=== PATIENT | male | born 1960 ===

== ENCOUNTER 2021-09-21 09:08 | Outpatient (CLI) | payer OTHER ==
[2021-09-21 11:15] LABS: #Basophils 0.1 thou/uL (0.0-0.2); #Eosinphils 0.2 thou/uL (0.0-0.7); #Lymphocytes 1.4 thou/uL (1.20-3.40); #Monocytes 0.5 thou/uL (0.11-0.59); #Neutrophils 2.3 thou/uL (1.40-6.50); %Basophils 1.3 % (0.0-1.0); %Eosinophils 4.7 % (0.0-10.0); %Lymphocytes 30.8 % (21.0-51.0); %Monocytes 11.9 % (0.0-10.0); %Neutrophils 51.4 % (42.0-75.0); Hemoglobin 14.8 g/dL (14.0-18.0); Mean Corpuscular Hemoglobin 29.5 pg (27.0-31.0); Mean Corpuscular Volume 95.3 fL (78.0-98.0); Mean Platelet Volume 8.2 fL (7.4-10.4); Platelet Count 200 thou/uL (130-400); RBC Distribution Width 12.6 % (11.5-14.5); White Blood Cell (WBC) Count 4.5 thou/uL (4.8-10.8)
[2021-09-21 11:30] LABS: ALT (SGPT) 40 U/L (8-55); AST (SGOT) 21 U/L (5-34); Albumin 4.9 g/dL (3.4-4.8); Alkaline Phosphatase 44 U/L (40-110); Anion Gap 16 mmol/L (10-20); BUN (Urea Nitrogen) 17 mg/dL (8.4-25.7); Bilirubin, Total 0.7 mg/dL (0.2-1.2); Calc. Creatinine Clearance 0 mL/min (70-130); Calcium 9.5 mg/dL (7.8-10.44); Carbon Dioxide 25 mmol/L (23-31); Chloride 104 mmol/L (98-107); Glucose 118 mg/dL (80-115); Potassium 3.9 mmol/L (3.5-5.1); Protein, Total 6.9 g/dL (5.8-8.1); Sodium 141 mmol/L (136-145)
[2021-09-21 11:45] LABS: Thyroid Stimulating Hormone 1.3742 uIU/mL (0.35-4.94)
[2021-09-21 16:44] LABS: Cardiac Risk 7.2 (Less than 4.5); Cholesterol 201 mg/dl (< 200 Desired); HDL Cholesterol 28 mg/dL (>60 Neg Risk); LDL Cholesterol, Calculated 137 mg/dL; Triglycerides 182 mg/dL (Less than 150)
[2021-09-21 17:05] LABS: Creatinine, Urine 175.06 mg/dL (63-166); Microalbumin Urine 1.7 mg/dL (0.5-50.0); Microalbumin/Creat Ratio 9.7 mg/g (Less than 30)
== END 2021-09-21 09:09 | disposition home or self-care (01) ==
LOC: NAV LAB 09:08
PROVIDERS: ATTEND Family Medicine
DX: E78.2 Mixed hyperlipidemia (principal); I10 Essential (primary) hypertension; R97.20 Elevated prostate specific antigen [PSA]; R73.03 Prediabetes
CPT/HCPCS: 36415; 80050; 80061; 82043; 83036; G0103